=== PATIENT | male | born 1965 | race Caucasian/White ===

== ENCOUNTER 2024-10-29 22:14 | Inpatient (IN) ==
[2024-10-29] MEDS ORDERED: IOPAMIDOL 100 ML BOTTLE IV ONE (22:15)
[2024-10-29] MEDS: 0.9 % SODIUM CHLORIDE 1,000 ML IV ONE (22:40)
[2024-10-29] MEDS: KETOROLAC 15 MG/ML VIAL IV ONE (22:40)
[2024-10-29] MEDS: ONDANSETRON 4 MG/2 ML VIAL IV ONE (22:40)
[2024-10-29 22:59] LABS: Basophils # (Auto) 0 K/mcL (0.00-0.30); Basophils % (Auto) 0 % (0.0-2.0); Eosinophils # (Auto) 0.01 K/mcL (0.00-0.70); Eosinophils % (Auto) 0.1 % (0.0-7.0); Hematocrit 46.8 % (40.1-51.0); Hemoglobin 15.6 g/dL (13.7-17.5); Lymphocytes # (Auto) 1.23 K/mcL (1.50-4.80); Lymphocytes % (Auto) 8.2 % (15.5-49.0); Mean Cell Volume 87.3 fL (80.0-100.0); Mean Corpuscular HGB Conc 33.3 g/dL (31.0-36.0); Mean Platelet Volume 9.1 fL (8.8-12.5); Monocytes # (Auto) 0.35 K/mcL (0.10-0.90); Monocytes % (Auto) 2.3 % (1.0-12.0); Neutrophils % (Auto) 89.1 % (38.0-78.0); Platelet Count 238 K/mcL (140-440); RBC 5.36 M/mcL (4.63-6.08); Red Cell Distribution Width 13.5 % (11.5-14.5)
[2024-10-29 23:34] LABS: ALT/SGPT 51 U/L (<40); AST/SGOT 29 U/L (<40); Albumin 4.7 gm/dL (3.2-5.2); Albumin/Globulin Ratio 1.4 (1.0-2.3); Alkaline Phosphatase 79 U/L (39-117); Bilirubin,Total 2.1 mg/dL (0.1-1.0); Blood Urea Nitrogen 14 mg/dL (6-20); Calcium 9.3 mg/dL (8.6-10.4); Carbon Dioxide 21 mmol/L (22-30); Chloride 98 mmol/L (96-108); Globulin 3.4 gm/dL (2.2-3.7); Glomerular Filtration Rate 82; Glucose 119 mg/dL (70-105); Potassium 3.9 mmol/L (3.3-5.1); Sodium 136 mmol/L (133-145)
[2024-10-29] MEDS: morphine 4 MG/ML VIAL IV ONE (23:40)
[2024-10-30] MEDS: fentaNYL 100 MCG/2 ML VIAL IV ONE (03:04)
[2024-10-30] MEDS: PIPERACILLIN SODIUM/TAZOBACTAM 3.375 GM in DEXTROSE 5% IN WATER 50 ML IV ONE (04:02)
[2024-10-30] MEDS: morphine 4 MG/ML VIAL IV ONE ×2 (05:01→08:04)
[2024-10-30] MEDS ORDERED: MIDAZOLAM 2 MG/2 ML VIAL ONE ×2 (08:50→18:55)
[2024-10-30] MEDS ORDERED: KETAMINE 50 MG/ML Syringe IV ONE ×2 (08:50→18:55)
[2024-10-30] MEDS ORDERED: PROPOFOL 200 MG/20 ML VIAL IV ONE ×2 (08:50→18:55)
[2024-10-30] MEDS ORDERED: KETOROLAC 30 MG/ML VIAL ONE (09:51)
[2024-10-30] MEDS ORDERED: ONDANSETRON 4 MG/2 ML VIAL ONE ×2 (09:51→18:54)
[2024-10-30] MEDS ORDERED: DEXAMETHASONE 10 MG/ML VIAL ONE ×2 (09:51→18:54)
[2024-10-30] MEDS ORDERED: GLYCOPYRROLATE 0.2 MG/ML VIAL IV ONE ×2 (09:51→18:54)
[2024-10-30] MEDS ORDERED: LIDOCAINE 2% PF 5 ML VIAL ONE ×2 (09:51→18:54)
[2024-10-30] MEDS ORDERED: ROCURONIUM 10 MG/ML ML IV ONE ×2 (09:51→10:30)
[2024-10-30] MEDS ORDERED: FAMOTIDINE/PF 20 MG/2 ML VIAL IV ONE ×2 (09:56→18:55)
[2024-10-30] MEDS ORDERED: HYDROmorphone 0.5 MG/0.5 ML SYRINGE ONE ×3 (10:14→21:32)
[2024-10-30] MEDS: CIPROFLOXACIN 400 MG/200 ML BAG IV SCH ×2 (10:35→22:09)
[2024-10-30] MEDS: metroNIDAZOLE 500 MG/100 ML BAG IV SCH ×2 (10:48→22:25)
[2024-10-30] MEDS: BUPIVACAINE W/EPI 0.25% 50 ML VIAL IJ ONE (11:02)
[2024-10-30] MEDS ORDERED: fentaNYL 100 MCG/2 ML VIAL IV PRN (11:18)
[2024-10-30] MEDS ORDERED: HYDROmorphone 0.5 MG/0.5 ML SYRINGE IV PRN ×2 (11:18→22:11)
[2024-10-30] MEDS ORDERED: DROPERIDOL 5 MG/2 ML VIAL IV PRN ×2 (11:18→22:09)
[2024-10-30] MEDS ORDERED: IPRATROPIUM/ALBUTEROL 3 ML AMPUL.NEB NEB PRN ×3 (11:18→22:09)
[2024-10-30] MEDS ORDERED: SUGAMMADEX SODIUM 200 MG/2 ML VIAL IV ONE ×2 (11:32→21:29)
[2024-10-30] MEDS ORDERED: IOPAMIDOL 100 ML BOTTLE IV ONE (12:43)
[2024-10-30] MEDS: HYDROmorphone 0.5 MG/0.5 ML SYRINGE IV PRN (13:10)
[2024-10-30] MEDS: ACETAMINOPHEN 650 MG/65 ML BAG IV PRN (13:11)
[2024-10-30] MEDS ORDERED: NALOXONE HCL 0.4 MG/ML VIAL IV PRN (15:52)
[2024-10-30] MEDS: 0.9 % SODIUM CHLORIDE 500 ML IV ONE ×3 (16:12→17:15)
[2024-10-30 16:33] LABS: Basophils # (Auto) 0.01 K/mcL (0.00-0.30); Basophils % (Auto) 0 % (0.0-2.0); Eosinophils # (Auto) 0 K/mcL (0.00-0.70); Eosinophils % (Auto) 0 % (0.0-7.0); Hematocrit 30.4 % (40.1-51.0); Lymphocytes % (Auto) 4.3 % (15.5-49.0); Mean Cell Volume 89.9 fL (80.0-100.0); Mean Corpuscular HGB Conc 32.9 g/dL (31.0-36.0); Mean Platelet Volume 9.6 fL (8.8-12.5); Monocytes # (Auto) 0.87 K/mcL (0.10-0.90); Monocytes % (Auto) 3.8 % (1.0-12.0); Neutrophils % (Auto) 91.5 % (38.0-78.0); Platelet Count 310 K/mcL (140-440); RBC 3.38 M/mcL (4.63-6.08); Red Cell Distribution Width 14.1 % (11.5-14.5); WBC 23.2 K/mcL (4.5-11.0)
[2024-10-30 16:57] LABS: Blood Urea Nitrogen 20 mg/dL (6-20); Calcium 7.9 mg/dL (8.6-10.4); Carbon Dioxide 18 mmol/L (22-30); Chloride 103 mmol/L (96-108); Glomerular Filtration Rate 55; Glucose 162 mg/dL (70-105); Potassium 4.7 mmol/L (3.3-5.1); Sodium 137 mmol/L (133-145)
[2024-10-30] MEDS: 0.9 % SODIUM CHLORIDE 250 ML IV SCH ×3 (17:05→21:02)
[2024-10-30] MEDS ORDERED: NOREPINEPHRINE BITARTRATE 8 MG in 0.9 % SODIUM CHLORIDE 242 ML IV PRN (17:30)
[2024-10-30] MEDS ORDERED: ACETAMINOPHEN 325 MG TABLET PO PRN (17:38)
[2024-10-30] MEDS ORDERED: SENNOSIDES 1 TABLET PO PRN (17:38)
[2024-10-30] MEDS ORDERED: POTASSIUM CHLORIDE 20 MEQ TABLET PO PRN ×2 (17:38)
[2024-10-30] MEDS ORDERED: POLYETHYLENE GLYCOL 3350 17 GM PACKET PO PRN (17:38)
[2024-10-30] MEDS ORDERED: POTASSIUM CHLORIDE 40 MEQ in DEXTROSE 5% IN WATER 500 ML IV PRN (17:38)
[2024-10-30] MEDS ORDERED: MAGNESIUM SULFATE 2 GM/50 ML BAG IV PRN (17:38)
[2024-10-30] MEDS ORDERED: NOREPINEPHRINE 250 ML IV PRN (18:00)
[2024-10-30] MEDS ORDERED: NOREPINEPHRINE 250 ML IV SCH (18:00)
[2024-10-30] MEDS: ALBUMIN HUMAN 25 GM/100 ML BAG IV SCH (18:27)
[2024-10-30] MEDS ORDERED: METOCLOPRAMIDE 10 MG/2 ML VIAL ONE (18:54)
[2024-10-30] MEDS ORDERED: TRANEXAMIC ACID 1,000 MG/10 ML VIAL ONE (18:54)
[2024-10-30] MEDS: PIPERACILLIN SODIUM/TAZOBACTAM 4.5 GM in DEXTROSE 5% IN WATER 50 ML IV SCH (20:06)
[2024-10-30] MEDS: DEXTROSE 5%-LR 1,000 ML IV SCH (21:01)
[2024-10-30] MEDS ORDERED: VASOPRESSIN 20 UNIT/ML VIAL ONE (21:09)
[2024-10-30] MEDS ORDERED: fentaNYL 100 MCG/2 ML VIAL ONE (21:34)
[2024-10-30] MEDS: fentaNYL 100 MCG/2 ML VIAL IV PRN (22:51)
[2024-10-30 23:52] LABS: Hematocrit 30.4 % (40.1-51.0); Hemoglobin 9.9 g/dL (13.7-17.5); Mean Cell Volume 89.4 fL (80.0-100.0); Mean Corpuscular HGB Conc 32.6 g/dL (31.0-36.0); Mean Platelet Volume 9.2 fL (8.8-12.5); Platelet Count 159 K/mcL (140-440); Red Cell Distribution Width 14.7 % (11.5-14.5); WBC 11.1 K/mcL (4.5-11.0)
[2024-10-31] MEDS: fentaNYL 100 MCG/2 ML VIAL ONE (00:46)
[2024-10-31] MEDS: DOCUSATE SODIUM 100 MG CAPSULE PO SCH (00:46)
[2024-10-31] MEDS: HYDROmorphone 1 MG/ML SYRINGE ONE (00:47)
[2024-10-31] MEDS: HYDROmorphone 0.5 MG/0.5 ML SYRINGE IV PRN (00:55)
[2024-10-31] MEDS: LACTATED RINGERS 1,000 ML IV SCH ×2 (02:42)
[2024-10-31] MEDS: PIPERACILLIN SODIUM/TAZOBACTAM 3.375 GM in DEXTROSE 5% IN WATER 50 ML IV ONE (02:43)
[2024-10-31 06:16] LABS: Hematocrit 26.8 % (40.1-51.0); Hemoglobin 8.9 g/dL (13.7-17.5); Mean Corpuscular HGB Conc 33.2 g/dL (31.0-36.0); Mean Platelet Volume 9.7 fL (8.8-12.5); Platelet Count 188 K/mcL (140-440); RBC 3.08 M/mcL (4.63-6.08); Red Cell Distribution Width 14.9 % (11.5-14.5); WBC 13.1 K/mcL (4.5-11.0)
[2024-10-31 06:36] LABS: ALT/SGPT 55 U/L (<40); AST/SGOT 42 U/L (<40); Albumin 3.3 gm/dL (3.2-5.2); Albumin/Globulin Ratio 1.4 (1.0-2.3); Alkaline Phosphatase 45 U/L (39-117); Bilirubin,Direct 0.8 mg/dL (<0.3); Bilirubin,Total 1.6 mg/dL (0.1-1.0); Blood Urea Nitrogen 18 mg/dL (6-20); Calcium 7.8 mg/dL (8.6-10.4); Carbon Dioxide 21 mmol/L (22-30); Chloride 105 mmol/L (96-108); Globulin 2.4 gm/dL (2.2-3.7); Glomerular Filtration Rate 93; Glucose 164 mg/dL (70-105); Lactate Dehydrogenase 165 U/L (135-225); Phosphorous 1.5 mg/dL (2.5-4.5); Potassium 4.2 mmol/L (3.3-5.1); Sodium 136 mmol/L (133-145); Triglycerides 62 mg/dL (<150); Uric Acid 4.5 mg/dL (2.5-8.0)
[2024-10-31] MEDS: PANTOPRAZOLE 40 MG VIAL IV SCH (07:20)
[2024-10-31] MEDS: SODIUM PHOSPHATE 30 MMOL in DEXTROSE 5% IN WATER 500 ML IV SCH (08:23)
[2024-10-31] MEDS: NEBIVOLOL 5 MG PO SCH (09:29)
[2024-10-31] MEDS: TAMSULOSIN 0.4 MG CAPSULE PO SCH (10:07)
[2024-10-31] MEDS: 0.9 % SODIUM CHLORIDE 250 ML IV SCH (12:44)
[2024-10-31 14:43] LABS: Hematocrit 28.4 % (40.1-51.0); Hemoglobin 9.5 g/dL (13.7-17.5)
[2024-11-01] MEDS: ONDANSETRON 4 MG/2 ML VIAL IV PRN (04:39)
[2024-11-01 06:27] LABS: ALT/SGPT 46 U/L (<40); AST/SGOT 24 U/L (<40); Albumin 3.5 gm/dL (3.2-5.2); Albumin/Globulin Ratio 1.3 (1.0-2.3); Alkaline Phosphatase 49 U/L (39-117); Bilirubin,Direct 0.4 mg/dL (<0.3); Bilirubin,Total 0.9 mg/dL (0.1-1.0); Blood Urea Nitrogen 21 mg/dL (6-20); Calcium 8.4 mg/dL (8.6-10.4); Carbon Dioxide 20 mmol/L (22-30); Chloride 102 mmol/L (96-108); Globulin 2.7 gm/dL (2.2-3.7); Glomerular Filtration Rate 98; Glucose 146 mg/dL (70-105); Lactate Dehydrogenase 188 U/L (135-225); Phosphorous 2.2 mg/dL (2.5-4.5); Potassium 3.9 mmol/L (3.3-5.1); Sodium 136 mmol/L (133-145); Triglycerides 139 mg/dL (<150); Uric Acid 4.9 mg/dL (2.5-8.0)
[2024-11-01 06:44] LABS: Hematocrit 31.3 % (40.1-51.0); Hemoglobin 10.5 g/dL (13.7-17.5); Mean Cell Volume 86.7 fL (80.0-100.0); Mean Corpuscular HGB Conc 33.5 g/dL (31.0-36.0); Mean Platelet Volume 9.6 fL (8.8-12.5); Platelet Count 252 K/mcL (140-440); Prothrombin Time 14.4 sec (11.9-14.5); RBC 3.61 M/mcL (4.63-6.08); Red Cell Distribution Width 14.6 % (11.5-14.5); WBC 14.8 K/mcL (4.5-11.0)
[2024-11-01] MEDS: DEXTROSE 5%-LR 1,000 ML IV SCH (07:47)
[2024-11-01 08:08] LABS: Band Neutrophils % 9 % (0-10); Eosinophils % (Manual) 1 % (0-7); Lymphocytes % 12 % (15-49); Monocytes % (Manual) 1 % (1-12); Platelet Estimate NORMAL (Normal); RBC Morphology NORMAL (Normal); Reactive Lymphocytes 4 % (0-2); Segmented Neutrophils % 73 % (38-78)
[2024-11-01] MEDS: METHOCARBAMOL 1,000 MG/10 ML VIAL IV PRN (09:08)
[2024-11-01] MEDS: SODIUM PHOSPHATE 30 MMOL in DEXTROSE 5% IN WATER 500 ML IV ONE (09:08)
[2024-11-01] MEDS: amLODIPine 5 MG TABLET PO SCH (10:22)
[2024-11-01] MEDS: BISACODYL 10 MG SUPP.RECT PR SCH (11:31)
[2024-11-01] MEDS: CIPROFLOXACIN 400 MG/200 ML BAG IV SCH (21:22)
[2024-11-01] MEDS: 0.9 % SODIUM CHLORIDE 10 ML SYRINGE IV SCH (21:25)
[2024-11-01] MEDS: metroNIDAZOLE 500 MG/100 ML BAG IV SCH (22:45)
[2024-11-02 06:06] LABS: Blood Urea Nitrogen 24 mg/dL (6-20); Calcium 8.2 mg/dL (8.6-10.4); Carbon Dioxide 22 mmol/L (22-30); Chloride 101 mmol/L (96-108); Glomerular Filtration Rate 98; Glucose 147 mg/dL (70-105); Sodium 136 mmol/L (133-145)
[2024-11-02] MEDS ORDERED: LABETALOL HCL 20 MG/4 ML VIAL IV PRN (07:38)
[2024-11-02 07:39] LABS: Hematocrit 35.7 % (40.1-51.0); Hemoglobin 11.8 g/dL (13.7-17.5); Mean Cell Volume 87.5 fL (80.0-100.0); Mean Corpuscular HGB Conc 33.1 g/dL (31.0-36.0); Mean Platelet Volume 9.2 fL (8.8-12.5); Platelet Count 345 K/mcL (140-440); RBC 4.08 M/mcL (4.63-6.08); Red Cell Distribution Width 14.7 % (11.5-14.5); WBC 19.6 K/mcL (4.5-11.0)
[2024-11-02] MEDS: LISINOPRIL 20 MG TABLET PO SCH (09:28)
[2024-11-02] MEDS: PIPERACILLIN SODIUM/TAZOBACTAM 4.5 GM in DEXTROSE 5% IN WATER 50 ML IV ONE (09:31)
[2024-11-02 09:36] LABS: Band Neutrophils % 2 % (0-10); Lymphocytes % 8 % (15-49); Monocytes % (Manual) 4 % (1-12); Platelet Estimate NORMAL (Normal); RBC Morphology NORMAL (Normal); Reactive Lymphocytes 8 % (0-2); Segmented Neutrophils % 78 % (38-78)
[2024-11-02] MEDS: FUROSEMIDE 40 MG/4 ML VIAL IV ONE (10:13)
[2024-11-02] MEDS: DEXTROSE 5%-LR 1,000 ML IV SCH (10:14)
[2024-11-02] MEDS: PIPERACILLIN SODIUM/TAZOBACTAM 4.5 GM in DEXTROSE 5% IN WATER 100 ML IV SCH (13:06)
[2024-11-02] MEDS: 0.9 % SODIUM CHLORIDE 1,000 ML IV SCH (18:31)
[2024-11-02 20:38] LABS: Basophils # (Auto) 0.01 K/mcL (0.00-0.30); Basophils % (Auto) 0 % (0.0-2.0); Eosinophils # (Auto) 0.01 K/mcL (0.00-0.70); Eosinophils % (Auto) 0 % (0.0-7.0); Hemoglobin 12.7 g/dL (13.7-17.5); Lymphocytes # (Auto) 3.44 K/mcL (1.50-4.80); Lymphocytes % (Auto) 14.9 % (15.5-49.0); Mean Corpuscular HGB Conc 32.6 g/dL (31.0-36.0); Mean Platelet Volume 9.2 fL (8.8-12.5); Monocytes # (Auto) 1.89 K/mcL (0.10-0.90); Monocytes % (Auto) 8.2 % (1.0-12.0); Neutrophils % (Auto) 72.9 % (38.0-78.0); Platelet Count 374 K/mcL (140-440); RBC 4.38 M/mcL (4.63-6.08); Red Cell Distribution Width 14.7 % (11.5-14.5); WBC 23.2 K/mcL (4.5-11.0)
[2024-11-03 05:56] LABS: Hematocrit 33.2 % (40.1-51.0); Hemoglobin 10.9 g/dL (13.7-17.5); Mean Cell Volume 88.1 fL (80.0-100.0); Mean Corpuscular HGB Conc 32.8 g/dL (31.0-36.0); Platelet Count 378 K/mcL (140-440); RBC 3.77 M/mcL (4.63-6.08); Red Cell Distribution Width 14.8 % (11.5-14.5); WBC 22.6 K/mcL (4.5-11.0)
[2024-11-03 06:15] LABS: Blood Urea Nitrogen 27 mg/dL (6-20); Carbon Dioxide 23 mmol/L (22-30); Chloride 101 mmol/L (96-108); Glomerular Filtration Rate 98; Glucose 140 mg/dL (70-105); Potassium 3.7 mmol/L (3.3-5.1); Sodium 136 mmol/L (133-145)
[2024-11-03] MEDS ORDERED: IOPAMIDOL 100 ML BOTTLE IV ONE (08:48)
[2024-11-03 09:36] LABS: Mean Platelet Volume 8.9 fL (8.8-12.5)
[2024-11-03] MEDS: METOCLOPRAMIDE 10 MG/2 ML VIAL IV SCH (12:02)
[2024-11-04 05:49] LABS: Hematocrit 33.9 % (40.1-51.0); Hemoglobin 11.2 g/dL (13.7-17.5); Mean Cell Volume 89.2 fL (80.0-100.0); Mean Platelet Volume 8.7 fL (8.8-12.5); Platelet Count 422 K/mcL (140-440); Red Cell Distribution Width 15.3 % (11.5-14.5); WBC 21.7 K/mcL (4.5-11.0)
[2024-11-04 07:20] LABS: ALT/SGPT 63 U/L (<40); AST/SGOT 36 U/L (<40); Albumin 3.1 gm/dL (3.2-5.2); Albumin/Globulin Ratio 1.1 (1.0-2.3); Alkaline Phosphatase 47 U/L (39-117); Bilirubin,Total 1.9 mg/dL (0.1-1.0); Blood Urea Nitrogen 26 mg/dL (6-20); Carbon Dioxide 22 mmol/L (22-30); Chloride 103 mmol/L (96-108); Globulin 2.8 gm/dL (2.2-3.7); Glomerular Filtration Rate 82; Glucose 130 mg/dL (70-105); Potassium 3.8 mmol/L (3.3-5.1); Sodium 137 mmol/L (133-145)
[2024-11-04] MEDS ORDERED: VANCOMYCIN PER PHARMACY IV SCH (08:00)
[2024-11-04] MEDS: VANCOMYCIN 1,000 MG in 0.9 % SODIUM CHLORIDE 250 ML IV SCH (08:20)
[2024-11-04] MEDS: VANCOMYCIN 1,500 MG in 0.9 % SODIUM CHLORIDE 500 ML IV SCH (09:52)
[2024-11-04 09:58] LABS: Band Neutrophils % 12 % (0-10); Lymphocytes % 7 % (15-49); Monocytes % (Manual) 4 % (1-12); Platelet Estimate INCREASED (Normal); RBC Morphology NORMAL (Normal); Reactive Lymphocytes 3 % (0-2); Segmented Neutrophils % 74 % (38-78)
[2024-11-04] MEDS ORDERED: FLUCONAZOLE 400 MG/200 ML BAG IV SCH (15:45)
[2024-11-05 08:14] LABS: Basophils # (Auto) 0.04 K/mcL (0.00-0.30); Basophils % (Auto) 0.2 % (0.0-2.0); Eosinophils # (Auto) 0 K/mcL (0.00-0.70); Eosinophils % (Auto) 0 % (0.0-7.0); Hematocrit 30.5 % (40.1-51.0); Hemoglobin 9.9 g/dL (13.7-17.5); Lymphocytes # (Auto) 1.57 K/mcL (1.50-4.80); Lymphocytes % (Auto) 6.2 % (15.5-49.0); Mean Cell Volume 90.5 fL (80.0-100.0); Mean Corpuscular HGB Conc 32.5 g/dL (31.0-36.0); Mean Platelet Volume 8.9 fL (8.8-12.5); Monocytes # (Auto) 1.45 K/mcL (0.10-0.90); Monocytes % (Auto) 5.7 % (1.0-12.0); Neutrophils % (Auto) 86.2 % (38.0-78.0); Platelet Count 352 K/mcL (140-440); RBC 3.37 M/mcL (4.63-6.08); Red Cell Distribution Width 15.7 % (11.5-14.5); WBC 25.2 K/mcL (4.5-11.0)
[2024-11-05 08:15] LABS: ALT/SGPT 51 U/L (<40); AST/SGOT 28 U/L (<40); Albumin 2.8 gm/dL (3.2-5.2); Albumin/Globulin Ratio 0.8 (1.0-2.3); Alkaline Phosphatase 52 U/L (39-117); Bilirubin,Total 1.9 mg/dL (0.1-1.0); Blood Urea Nitrogen 25 mg/dL (6-20); Calcium 7.9 mg/dL (8.6-10.4); Carbon Dioxide 20 mmol/L (22-30); Chloride 104 mmol/L (96-108); Globulin 3.3 gm/dL (2.2-3.7); Glomerular Filtration Rate 93; Glucose 127 mg/dL (70-105); Potassium 3.3 mmol/L (3.3-5.1); Sodium 137 mmol/L (133-145)
[2024-11-05] MEDS: HYDROcodone/APAP 5/325MG TABLET PO PRN (09:18)
[2024-11-05] MEDS: VANCOMYCIN 2,000 MG in 0.9 % SODIUM CHLORIDE 500 ML IV SCH (09:21)
[2024-11-05] MEDS: FLUCONAZOLE 400 MG/200 ML BAG IV SCH (12:37)
[2024-11-05] MEDS: POTASSIUM CHLORIDE 20 MEQ TABLET PO ONE (15:06)
[2024-11-05] MEDS: FUROSEMIDE 40 MG/4 ML VIAL IV ONE (15:06)
[2024-11-06 08:05] LABS: Basophils # (Auto) 0 K/mcL (0.00-0.30); Basophils % (Auto) 0 % (0.0-2.0); Eosinophils # (Auto) 0.01 K/mcL (0.00-0.70); Eosinophils % (Auto) 0 % (0.0-7.0); Hematocrit 27.5 % (40.1-51.0); Hemoglobin 8.9 g/dL (13.7-17.5); Lymphocytes # (Auto) 0.89 K/mcL (1.50-4.80); Lymphocytes % (Auto) 3.8 % (15.5-49.0); Mean Cell Volume 89.6 fL (80.0-100.0); Mean Corpuscular HGB Conc 32.4 g/dL (31.0-36.0); Mean Platelet Volume 8.9 fL (8.8-12.5); Monocytes # (Auto) 1.18 K/mcL (0.10-0.90); Neutrophils % (Auto) 90.3 % (38.0-78.0); Platelet Count 330 K/mcL (140-440); RBC 3.07 M/mcL (4.63-6.08); Red Cell Distribution Width 15.6 % (11.5-14.5); WBC 23.6 K/mcL (4.5-11.0)
[2024-11-06 08:17] LABS: ALT/SGPT 52 U/L (<40); AST/SGOT 31 U/L (<40); Albumin 2.6 gm/dL (3.2-5.2); Albumin/Globulin Ratio 0.8 (1.0-2.3); Alkaline Phosphatase 74 U/L (39-117); Bilirubin,Total 1.5 mg/dL (0.1-1.0); Blood Urea Nitrogen 22 mg/dL (6-20); Calcium 7.7 mg/dL (8.6-10.4); Carbon Dioxide 20 mmol/L (22-30); Chloride 103 mmol/L (96-108); Globulin 3.3 gm/dL (2.2-3.7); Glomerular Filtration Rate 98; Glucose 122 mg/dL (70-105); Potassium 3.3 mmol/L (3.3-5.1); Sodium 135 mmol/L (133-145)
[2024-11-06] MEDS ORDERED: IOPAMIDOL 100 ML BOTTLE IV ONE (08:35)
[2024-11-06] MEDS: HEPARIN 10 UNITS/ML 5ML FLUSH IV SCH (09:04)
[2024-11-06] MEDS: 0.9 % SODIUM CHLORIDE 10 ML SYRINGE IV SCH (09:05)
[2024-11-06] MEDS ORDERED: ROCURONIUM 10 MG/ML ML IV ONE (11:43)
[2024-11-06] MEDS ORDERED: DEXAMETHASONE 10 MG/ML VIAL ONE (11:43)
[2024-11-06] MEDS ORDERED: KETAMINE 50 MG/ML Syringe IV ONE (11:43)
[2024-11-06] MEDS ORDERED: LIDOCAINE 2% PF 5 ML VIAL ONE (11:43)
[2024-11-06] MEDS ORDERED: MAGNESIUM SULFATE 2 GM/50 ML BAG IV ONE (11:43)
[2024-11-06] MEDS ORDERED: ONDANSETRON 4 MG/2 ML VIAL ONE (11:43)
[2024-11-06] MEDS ORDERED: PROPOFOL 200 MG/20 ML VIAL IV ONE (11:43)
[2024-11-06] MEDS ORDERED: fentaNYL 100 MCG/2 ML VIAL ONE ×2 (11:43→14:31)
[2024-11-06] MEDS ORDERED: OXYMETAZOLINE 1 NASAL SPRAY BOTTLE NAS ONE (12:03)
[2024-11-06] MEDS ORDERED: MEPERIDINE 25 MG/ML VIAL IV PRN (14:17)
[2024-11-06] MEDS ORDERED: ONDANSETRON 4 MG/2 ML VIAL IV PRN (14:17)
[2024-11-06] MEDS ORDERED: METHOCARBAMOL 1,000 MG/10 ML VIAL IV PRN (14:17)
[2024-11-06] MEDS ORDERED: HYDROmorphone 0.5 MG/0.5 ML SYRINGE IV PRN (14:17)
[2024-11-06] MEDS ORDERED: fentaNYL 100 MCG/2 ML VIAL IV PRN (14:17)
[2024-11-06] MEDS ORDERED: diphenhydrAMINE 50 MG/ML VIAL IV PRN (14:17)
[2024-11-06] MEDS ORDERED: IPRATROPIUM/ALBUTEROL 3 ML AMPUL.NEB NEB PRN (14:17)
[2024-11-06] MEDS ORDERED: LACTATED RINGERS 250 ML IV PRN (14:17)
[2024-11-06] MEDS ORDERED: NALOXONE HCL 0.4 MG/ML VIAL IV PRN (14:17)
[2024-11-06] MEDS ORDERED: SUGAMMADEX SODIUM 200 MG/2 ML VIAL IV ONE (14:26)
[2024-11-06] MEDS ORDERED: HYDROmorphone 0.5 MG/0.5 ML SYRINGE ONE (14:36)
[2024-11-06] MEDS: ACETAMINOPHEN 1,000 MG/100 ML BAG IV ONE (14:56)
[2024-11-06] MEDS: VANCOMYCIN 1,750 MG in 0.9 % SODIUM CHLORIDE 500 ML IV SCH (15:29)
[2024-11-06] MEDS: 0.9 % SODIUM CHLORIDE 1,000 ML IV SCH (16:01)
[2024-11-06] MEDS: LACTATED RINGERS 1,000 ML IV SCH (16:12)
[2024-11-06] MEDS: LINEZOLID 600 MG/300 ML BAG IV SCH (21:02)
[2024-11-07 06:14] LABS: Basophils # (Auto) 0 K/mcL (0.00-0.30); Basophils % (Auto) 0 % (0.0-2.0); Eosinophils # (Auto) 0 K/mcL (0.00-0.70); Eosinophils % (Auto) 0 % (0.0-7.0); Hematocrit 26.2 % (40.1-51.0); Hemoglobin 8.5 g/dL (13.7-17.5); Lymphocytes # (Auto) 0.83 K/mcL (1.50-4.80); Lymphocytes % (Auto) 4.1 % (15.5-49.0); Mean Cell Volume 90.3 fL (80.0-100.0); Mean Corpuscular HGB Conc 32.4 g/dL (31.0-36.0); Mean Platelet Volume 8.9 fL (8.8-12.5); Monocytes # (Auto) 1.07 K/mcL (0.10-0.90); Monocytes % (Auto) 5.2 % (1.0-12.0); Neutrophils % (Auto) 90.3 % (38.0-78.0); Platelet Count 351 K/mcL (140-440); Red Cell Distribution Width 15.8 % (11.5-14.5); WBC 20.5 K/mcL (4.5-11.0)
[2024-11-07 06:31] LABS: ALT/SGPT 52 U/L (<40); AST/SGOT 33 U/L (<40); Albumin 2.2 gm/dL (3.2-5.2); Albumin/Globulin Ratio 0.7 (1.0-2.3); Alkaline Phosphatase 59 U/L (39-117); Bilirubin,Total 1.2 mg/dL (0.1-1.0); Blood Urea Nitrogen 16 mg/dL (6-20); Calcium 7.2 mg/dL (8.6-10.4); Carbon Dioxide 22 mmol/L (22-30); Chloride 105 mmol/L (96-108); Glomerular Filtration Rate 103; Glucose 134 mg/dL (70-105); Potassium 3.9 mmol/L (3.3-5.1); Sodium 137 mmol/L (133-145)
[2024-11-07] MEDS ORDERED: LORazepam 2 MG/ML VIAL IV PRN (08:18)
[2024-11-07] MEDS: HEPARIN 10 UNITS/ML 5ML FLUSH IV SCH ×2 (08:23)
[2024-11-07] MEDS: 0.9 % SODIUM CHLORIDE 10 ML SYRINGE IV SCH (08:58)
[2024-11-07] MEDS ORDERED: TPN PER PHARMACY IV SCH (09:17)
[2024-11-07 09:54] LABS: Phosphorous 2.5 mg/dL (2.5-4.5)
[2024-11-07 12:36] LABS: Prealbumin 4.3 mg/dL (20.0-40.0)
[2024-11-07] MEDS ORDERED: DEXTROSE 50% 50 ML VIAL IV PRN (13:56)
[2024-11-07] MEDS ORDERED: DEXTROSE 31 GM ORAL.SUSP PO PRN (13:56)
[2024-11-07] MEDS: MVI IV SCH (14:23)
[2024-11-07] MEDS: [UNRECOGNIZED DRUG - OTHER] IV SCH (14:23)
[2024-11-07] MEDS: SODIUM CHLORIDE IV SCH (14:23)
[2024-11-07] MEDS: CALCIUM GLUCONATE IV SCH (14:23)
[2024-11-07] MEDS: POTASSIUM PHOSPHATE IV SCH (14:23)
[2024-11-07] MEDS: 0.9 % SODIUM CHLORIDE 1,000 ML IV SCH (14:26)
[2024-11-07] MEDS: FAT EMULSION 20% 250 ML IV SCH (17:29)
[2024-11-07] MEDS: INSULIN LISPRO 1 UNIT/0.01 ML UNIT SQ SCH (18:06)
[2024-11-07] MEDS: DIAZEPAM 10 MG/2 ML SYRINGE IV PRN (22:02)
[2024-11-08 06:36] LABS: Basophils # (Auto) 0 K/mcL (0.00-0.30); Basophils % (Auto) 0 % (0.0-2.0); Eosinophils # (Auto) 0.04 K/mcL (0.00-0.70); Eosinophils % (Auto) 0.2 % (0.0-7.0); Hematocrit 24.4 % (40.1-51.0); Hemoglobin 7.7 g/dL (13.7-17.5); Lymphocytes # (Auto) 1.04 K/mcL (1.50-4.80); Lymphocytes % (Auto) 5.8 % (15.5-49.0); Mean Corpuscular HGB Conc 31.6 g/dL (31.0-36.0); Mean Platelet Volume 8.8 fL (8.8-12.5); Monocytes # (Auto) 0.93 K/mcL (0.10-0.90); Monocytes % (Auto) 5.2 % (1.0-12.0); Neutrophils % (Auto) 87.7 % (38.0-78.0); Platelet Count 335 K/mcL (140-440); RBC 2.68 M/mcL (4.63-6.08); Red Cell Distribution Width 15.6 % (11.5-14.5)
[2024-11-08 06:48] LABS: ALT/SGPT 48 U/L (<40); AST/SGOT 32 U/L (<40); Albumin 2.3 gm/dL (3.2-5.2); Albumin/Globulin Ratio 0.8 (1.0-2.3); Alkaline Phosphatase 57 U/L (39-117); Bilirubin,Direct 0.7 mg/dL (<0.3); Bilirubin,Total 1.1 mg/dL (0.1-1.0); Blood Urea Nitrogen 14 mg/dL (6-20); Calcium 7.4 mg/dL (8.6-10.4); Carbon Dioxide 25 mmol/L (22-30); Chloride 105 mmol/L (96-108); Globulin 2.9 gm/dL (2.2-3.7); Glomerular Filtration Rate 103; Glucose 136 mg/dL (70-105); Lactate Dehydrogenase 321 U/L (135-225); Potassium 3.5 mmol/L (3.3-5.1); Sodium 139 mmol/L (133-145); Triglycerides 156 mg/dL (<150); Uric Acid 2.4 mg/dL (2.5-8.0)
[2024-11-08] MEDS: FUROSEMIDE 40 MG/4 ML VIAL IV SCH (10:04)
[2024-11-08] MEDS: KETOROLAC 30 MG/ML VIAL IV SCH (11:46)
[2024-11-08] MEDS: [UNRECOGNIZED DRUG - REMARK] IV SCH (14:06)
[2024-11-08] MEDS: 0.9 % SODIUM CHLORIDE 10 ML SYRINGE IV PRN (15:44)
[2024-11-08] MEDS: ZOLPIDEM 5 MG TABLET PO PRN (20:30)
[2024-11-09 06:05] LABS: Basophils # (Auto) 0.01 K/mcL (0.00-0.30); Basophils % (Auto) 0.1 % (0.0-2.0); Eosinophils # (Auto) 0.11 K/mcL (0.00-0.70); Eosinophils % (Auto) 0.7 % (0.0-7.0); Hematocrit 24.3 % (40.1-51.0); Hemoglobin 7.7 g/dL (13.7-17.5); Lymphocytes # (Auto) 1.16 K/mcL (1.50-4.80); Lymphocytes % (Auto) 7.3 % (15.5-49.0); Mean Corpuscular HGB Conc 31.7 g/dL (31.0-36.0); Mean Platelet Volume 8.9 fL (8.8-12.5); Monocytes # (Auto) 0.75 K/mcL (0.10-0.90); Monocytes % (Auto) 4.7 % (1.0-12.0); Neutrophils % (Auto) 85.4 % (38.0-78.0); Platelet Count 384 K/mcL (140-440); Red Cell Distribution Width 15.6 % (11.5-14.5); WBC 15.8 K/mcL (4.5-11.0)
[2024-11-09 06:21] LABS: ALT/SGPT 58 U/L (<40); AST/SGOT 37 U/L (<40); Albumin 2.4 gm/dL (3.2-5.2); Albumin/Globulin Ratio 0.8 (1.0-2.3); Alkaline Phosphatase 75 U/L (39-117); Bilirubin,Direct 0.7 mg/dL (<0.3); Blood Urea Nitrogen 17 mg/dL (6-20); Calcium 7.5 mg/dL (8.6-10.4); Carbon Dioxide 25 mmol/L (22-30); Chloride 104 mmol/L (96-108); Globulin 3.1 gm/dL (2.2-3.7); Glomerular Filtration Rate 110; Glucose 144 mg/dL (70-105); Lactate Dehydrogenase 368 U/L (135-225); Phosphorous 3.1 mg/dL (2.5-4.5); Potassium 3.1 mmol/L (3.3-5.1); Sodium 139 mmol/L (133-145); Triglycerides 135 mg/dL (<150); Uric Acid 1.8 mg/dL (2.5-8.0)
[2024-11-09] MEDS: FUROSEMIDE 40 MG/4 ML VIAL IV ONE (09:19)
[2024-11-09] MEDS: POTASSIUM CHLORIDE 40 MEQ in DEXTROSE 5% IN WATER 250 ML IV ONE (11:10)
[2024-11-09] MEDS: [UNRECOGNIZED DRUG - REMARK] IV SCH (14:04)
[2024-11-09] MEDS: PANTOPRAZOLE 40 MG VIAL IV SCH (21:51)
[2024-11-10] MEDS: hydrALAZINE 20 MG/ML VIAL IV PRN (00:19)
[2024-11-10 06:32] LABS: Basophils # (Auto) 0.02 K/mcL (0.00-0.30); Basophils % (Auto) 0.2 % (0.0-2.0); Eosinophils # (Auto) 0.13 K/mcL (0.00-0.70); Lymphocytes # (Auto) 1.26 K/mcL (1.50-4.80); Lymphocytes % (Auto) 10.2 % (15.5-49.0); Mean Cell Volume 93.9 fL (80.0-100.0); Mean Corpuscular HGB Conc 30.8 g/dL (31.0-36.0); Mean Platelet Volume 8.8 fL (8.8-12.5); Monocytes # (Auto) 0.81 K/mcL (0.10-0.90); Monocytes % (Auto) 6.5 % (1.0-12.0); Neutrophils % (Auto) 77.4 % (38.0-78.0); Platelet Count 425 K/mcL (140-440); RBC 2.77 M/mcL (4.63-6.08); Red Cell Distribution Width 16.1 % (11.5-14.5); WBC 12.4 K/mcL (4.5-11.0)
[2024-11-10 06:53] LABS: Blood Urea Nitrogen 15 mg/dL (6-20); Calcium 7.7 mg/dL (8.6-10.4); Carbon Dioxide 21 mmol/L (22-30); Chloride 102 mmol/L (96-108); Glomerular Filtration Rate 110; Glucose 135 mg/dL (70-105); Potassium 3.7 mmol/L (3.3-5.1); Sodium 136 mmol/L (133-145)
[2024-11-10 09:38] LABS: Albumin 2.5 gm/dL (3.2-5.2)
[2024-11-10 09:39] LABS: Phosphorous 2.6 mg/dL (2.5-4.5)
[2024-11-10] MEDS: [UNRECOGNIZED DRUG - REMARK] IV SCH (14:05)
[2024-11-10] MEDS: FUROSEMIDE 20 MG/2 ML VIAL IV SCH (14:11)
[2024-11-11 06:06] LABS: Hematocrit 25.6 % (40.1-51.0); Hemoglobin 8.1 g/dL (13.7-17.5); Mean Cell Volume 91.1 fL (80.0-100.0); Mean Corpuscular HGB Conc 31.6 g/dL (31.0-36.0); Mean Platelet Volume 8.5 fL (8.8-12.5); Platelet Count 469 K/mcL (140-440); RBC 2.81 M/mcL (4.63-6.08); Red Cell Distribution Width 15.8 % (11.5-14.5); WBC 12.6 K/mcL (4.5-11.0)
[2024-11-11 06:30] LABS: ALT/SGPT 102 U/L (<40); AST/SGOT 54 U/L (<40); Albumin 2.7 gm/dL (3.2-5.2); Albumin/Globulin Ratio 0.8 (1.0-2.3); Alkaline Phosphatase 65 U/L (39-117); Bilirubin,Total 1.4 mg/dL (0.1-1.0); Blood Urea Nitrogen 13 mg/dL (6-20); Carbon Dioxide 21 mmol/L (22-30); Chloride 101 mmol/L (96-108); Globulin 3.5 gm/dL (2.2-3.7); Glomerular Filtration Rate 110; Glucose 140 mg/dL (70-105); Lactate Dehydrogenase 359 U/L (135-225); Phosphorous 2.8 mg/dL (2.5-4.5); Potassium 3.8 mmol/L (3.3-5.1); Sodium 134 mmol/L (133-145); Triglycerides 121 mg/dL (<150); Uric Acid 1.3 mg/dL (2.5-8.0)
[2024-11-11] MEDS: FUROSEMIDE 20 MG/2 ML VIAL IV SCH (13:30)
[2024-11-11] MEDS: [UNRECOGNIZED DRUG - REMARK] IV SCH (14:27)
[2024-11-12 06:22] LABS: Basophils # (Auto) 0.03 K/mcL (0.00-0.30); Basophils % (Auto) 0.2 % (0.0-2.0); Eosinophils # (Auto) 0.15 K/mcL (0.00-0.70); Eosinophils % (Auto) 1.2 % (0.0-7.0); Hematocrit 25.4 % (40.1-51.0); Lymphocytes # (Auto) 1.54 K/mcL (1.50-4.80); Lymphocytes % (Auto) 12.7 % (15.5-49.0); Mean Cell Volume 91.7 fL (80.0-100.0); Mean Corpuscular HGB Conc 31.5 g/dL (31.0-36.0); Mean Platelet Volume 8.6 fL (8.8-12.5); Monocytes # (Auto) 0.82 K/mcL (0.10-0.90); Monocytes % (Auto) 6.7 % (1.0-12.0); Neutrophils % (Auto) 76.2 % (38.0-78.0); Platelet Count 482 K/mcL (140-440); RBC 2.77 M/mcL (4.63-6.08); Red Cell Distribution Width 15.9 % (11.5-14.5); WBC 12.2 K/mcL (4.5-11.0)
[2024-11-12 06:44] LABS: Blood Urea Nitrogen 16 mg/dL (6-20); Calcium 8.2 mg/dL (8.6-10.4); Carbon Dioxide 20 mmol/L (22-30); Chloride 100 mmol/L (96-108); Glomerular Filtration Rate 103; Glucose 139 mg/dL (70-105); Potassium 4.3 mmol/L (3.3-5.1); Sodium 132 mmol/L (133-145)
[2024-11-12 08:55] LABS: Albumin 2.7 gm/dL (3.2-5.2)
[2024-11-12 08:56] LABS: Phosphorous 3.3 mg/dL (2.5-4.5)
[2024-11-12] MEDS ORDERED: BENZOCAINE/MENTHOL 1 LOZENGE PO PRN (10:00)
[2024-11-12] MEDS ORDERED: [UNRECOGNIZED DRUG - REMARK] IV SCH ×2 (14:00)
[2024-11-12] MEDS: [UNRECOGNIZED DRUG - REMARK] IV SCH (14:14)
[2024-11-12] MEDS: BENZOCAINE ONE 20% 1 SPRAY TOPICAL PRN (16:16)
[2024-11-13 06:27] LABS: Basophils # (Auto) 0.04 K/mcL (0.00-0.30); Basophils % (Auto) 0.3 % (0.0-2.0); Eosinophils # (Auto) 0.16 K/mcL (0.00-0.70); Eosinophils % (Auto) 1.2 % (0.0-7.0); Hematocrit 25.2 % (40.1-51.0); Hemoglobin 7.9 g/dL (13.7-17.5); Lymphocytes # (Auto) 2.09 K/mcL (1.50-4.80); Lymphocytes % (Auto) 15.8 % (15.5-49.0); Mean Cell Volume 91.3 fL (80.0-100.0); Mean Corpuscular HGB Conc 31.3 g/dL (31.0-36.0); Mean Platelet Volume 8.6 fL (8.8-12.5); Monocytes # (Auto) 0.96 K/mcL (0.10-0.90); Monocytes % (Auto) 7.3 % (1.0-12.0); Neutrophils % (Auto) 72.5 % (38.0-78.0); Platelet Count 520 K/mcL (140-440); RBC 2.76 M/mcL (4.63-6.08); Red Cell Distribution Width 15.9 % (11.5-14.5); WBC 13.2 K/mcL (4.5-11.0)
[2024-11-13 06:30] LABS: Blood Urea Nitrogen 14 mg/dL (6-20); Calcium 8.3 mg/dL (8.6-10.4); Carbon Dioxide 21 mmol/L (22-30); Chloride 99 mmol/L (96-108); Glomerular Filtration Rate 103; Glucose 132 mg/dL (70-105); Potassium 4.3 mmol/L (3.3-5.1); Sodium 131 mmol/L (133-145)
[2024-11-13 06:44] LABS: ALT/SGPT 125 U/L (<40); AST/SGOT 51 U/L (<40); Albumin 2.9 gm/dL (3.2-5.2); Albumin/Globulin Ratio 0.8 (1.0-2.3); Alkaline Phosphatase 84 U/L (39-117); Bilirubin,Direct 0.9 mg/dL (<0.3); Bilirubin,Total 1.2 mg/dL (0.1-1.0); Globulin 3.5 gm/dL (2.2-3.7); Lactate Dehydrogenase 372 U/L (135-225); Phosphorous 3.4 mg/dL (2.5-4.5); Triglycerides 113 mg/dL (<150); Uric Acid 1.3 mg/dL (2.5-8.0)
[2024-11-13] MEDS: [UNRECOGNIZED DRUG - REMARK] IV SCH (14:19)
[2024-11-13] MEDS ORDERED: IOPAMIDOL 100 ML BOTTLE IV ONE (15:42)
== END 2024-11-13 19:02 | disposition short-term general hospital (02) | DRG 329 ==
LOC: ED 22:14 → SUR 10-30 08:43 → MEDSUR 10-30 08:43 → SUR 10-30 08:45 → ICU 10-30 16:42 → MEDSUR 11-02 16:21
PROVIDERS: ADMIT Surgery Surgical Critical Care; ATTEND Surgery
PROC: LAPAPPY (ICD-10-PCS; 2024-10-30 09:14)